=== PATIENT | female | born 1955 | race Caucasian/White ===

== ENCOUNTER → 2022-04-23 | Outpatient (CLI) | payer MEDICARE, BC, OTHER | LOC: M WHC 13:26 | PROVIDERS: ATTEND Internal Medicine | DX: Z12.31 Encounter for screening mammogram for malignant neoplasm of breast (principal) ==

== ENCOUNTER → 2023-05-22 | Outpatient (CLI) | payer MEDICARE, BC, OTHER | LOC: M WHC 12:29 | PROVIDERS: ATTEND Internal Medicine | DX: Z12.31 Encounter for screening mammogram for malignant neoplasm of breast (principal) ==

== ENCOUNTER → 2024-05-31 | Outpatient (CLI) | payer MEDICARE, BC | LOC: M WHC 07:59 | PROVIDERS: ATTEND Internal Medicine | DX: Z12.31 Encounter for screening mammogram for malignant neoplasm of breast (principal) ==

== ENCOUNTER 2024-11-04 08:52 | Day surgery (SDC) | payer MEDICARE, BC ==
[~2024-11-04] VITALS: Ht 162.6 cm; Wt 68.5 kg
[~2024-11-04 08:52] MED LIST: K2 P1TAB PO; THERTAB52 PO
[2024-11-04] MEDS ORDERED: LIDOCAINE 2% 100MG/5ML SDV (FOR ANES.) As Ordered ONE (10:32)
[2024-11-04] MEDS ORDERED: propofoL 200 MG/20 ML VIAL As Ordered ONE (10:32)
[2024-11-04] MEDS ORDERED: GLUCAGON INJ 1MG VIAL As Ordered ONE (10:54)
[2024-11-04 11:19] VITALS: TEMP 97.7
[2024-11-04 11:34] VITALS: BP 138/81; O2SAT 98
== END 2024-11-04 11:38 | disposition home or self-care (01) ==
LOC: M OPP 08:52
PROVIDERS: ATTEND Surgery
DX: K57.30 Diverticulosis of large intestine without perforation or abscess without bleeding (principal); Z86.0100 Personal history of colon polyps, unspecified; Z80.0 Family history of malignant neoplasm of digestive organs; Z79.899 Other long term (current) drug therapy
CPT/HCPCS: 45380; 88305; J1610

== ENCOUNTER → 2024-12-26 | Outpatient (REF) | payer MEDICARE, BC ==
[~2024-12-26] MED LIST changes: +AMLO2.5T3 PO; +SERT50TA29 PO
[2024-12-26 17:57] LABS: ALT/SGPT 38 U/L (7.0-40); AST/SGOT 38 U/L (<34); CALCIUM LEVEL 9.4 MG/DL (8.3-10.6); CARBON DIOXIDE LEVEL 23 MMOL/L (20-31); CHLORIDE LEVEL 109 MMOL/L (98-107); CHOLESTEROL LEVEL 206 MG/DL (<200); CHOLESTEROL RISK RATIO 3.28 (<5); CREATININE FOR GFR 0.61 MG/DL (0.55-1.30); GLOMERULAR FILTRATION RATE > 90.0 (>39); LDL CHOLESTEROL 128.1 MG/DL (<100); NON-HDL-C 143.3 MG/DL; POTASSIUM SERUM 4.1 MMOL/L (3.5-5.1); SODIUM LEVEL 145 MMOL/L (136-145); TRIGLYCERIDES LEVEL 76 MG/DL (<150)
[2024-12-26 18:06] LABS: PLATELET COUNT, AUTOMATED 300 10^3/uL (150-450)
== END ==
LOC: M SFHCCLAY 09:23
PROVIDERS: ATTEND Family Medicine
DX: D37.3 Neoplasm of uncertain behavior of appendix (principal); Z01.818 Encounter for other preprocedural examination; K76.0 Fatty (change of) liver, not elsewhere classified; Z13.220 Encounter for screening for lipoid disorders

== ENCOUNTER 2025-01-05 12:45 | Inpatient (IN) | payer MEDICARE, BC ==
[~2025-01-05] VITALS: Ht 162.6 cm; Wt 67.6 kg
[2025-01-17] VITALS (8 sets, daily range): BP systolic 111–134; BP diastolic 58–81; TEMP 97.6–98.5; O2SAT 95–98
[2025-01-17] MEDS: LR 1,000 ML IV SCH ×3 (00:30→11:40)
[2025-01-17] MEDS ORDERED: KETOROLAC 30 MG/ML 1 ML VIAL As Ordered ONE (06:24)
[2025-01-17] MEDS ORDERED: LIDOCAINE 2% 100 MG/5 ML SDV (FOR ANES.) As Ordered ONE (06:24)
[2025-01-17] MEDS ORDERED: SUGAMMADEX SODIUM 500 MG/5 ML VIAL As Ordered ONE (06:24)
[2025-01-17] MEDS ORDERED: ONDANSETRON 4MG 2ML VIAL As Ordered ONE (06:24)
[2025-01-17] MEDS ORDERED: dexAMETHasone 4 MG/ML 1 ML VIAL As Ordered ONE (06:24)
[2025-01-17] MEDS ORDERED: ROCURONIUM BROMIDE 50MG/5ML VIAL As Ordered ONE (06:24)
[2025-01-17] MEDS ORDERED: GLYCOPYRROLATE INJ 0.2 MG/ML 2 ML VIAL As Ordered ONE (06:24)
[2025-01-17] MEDS ORDERED: ACETAMINOPHEN 1000MG/100ML IV BAG As Ordered ONE (06:25)
[2025-01-17] MEDS ORDERED: MIDAZOLAM INJ 2 MG/2 ML VIAL As Ordered ONE (06:29)
[2025-01-17] MEDS: CelecoXIB 400 MG CAP PO ONE (07:15)
[2025-01-17] MEDS: ALVIMOPAN 12 MG CAPSULE PO ONE (07:15)
[2025-01-17] MEDS: SCOPOLAMINE 1MG TRANSDERMAL PATCH TOP ONE (07:31)
[2025-01-17] MEDS: ONDANSETRON 4MG 2ML VIAL IV ONE (07:32)
[2025-01-17] MEDS: HEPARIN SOD 5000 UNITS/ML 1 ML VIAL/SYRINGE SQ ONE (07:44)
[2025-01-17] MEDS ORDERED: PHENYLephrine 500MCG 5ML (100MCG/ML) SYRINGE As Ordered ONE (07:50)
[2025-01-17] MEDS: ceFAZolin SOD 2 GM IV ONCE IV ONE (07:50)
[2025-01-17] MEDS: metroNIDAZOLE 500 MG in IV 1 EA IV ONE (08:00)
[2025-01-17] MEDS ORDERED: ESMOLOL 100 MG/10 ML VIAL As Ordered ONE (08:16)
[2025-01-17] MEDS ORDERED: HYDROmorphone HCL 2 MG/ML 1 ML VIAL As Ordered ONE (08:22)
[2025-01-17] MEDS ORDERED: LABETALOL 100 MG/20 ML VIAL As Ordered ONE (09:07)
[2025-01-17] MEDS: INDOCYANINE GREEN 25 MG VIAL As Ordered ONE (09:26)
[2025-01-17] MEDS ORDERED: HYDROMORPHONE HCL 0.5 MG/0.5 ML SYRINGE IV PRN (11:15)
[2025-01-17] MEDS ORDERED: ONDANSETRON 4MG 2ML VIAL IV PRN ×2 (11:15→11:40)
[2025-01-17] MEDS: LIDOCAINE 1% SDV 30 ML VIAL As Ordered ONE (11:24)
[2025-01-17] MEDS ORDERED: ACETAMINOPHEN 325 MG TAB PO PRN (11:40)
[2025-01-17] MEDS ORDERED: PERCOCET 5MG/325MG TAB PO PRN ×2 (11:40)
[2025-01-17] MEDS ORDERED: MORPHINE 4 MG/ML 1 ML VIAL IV PRN (11:40)
[2025-01-17] MEDS: KETOROLAC 30 MG/ML 1 ML VIAL IV SCH (16:37)
[2025-01-18 04:06] VITALS: BP 127/64; TEMP 98; O2SAT 94
[2025-01-18 06:45] LABS: BASO # 0.0 10^3/uL (0.0-0.2); BASO % 0.2 % (0.0-1.0); EOS # 0.0 10^3/uL (0.0-0.5); EOS % 0.2 % (0.0-3.0); LYMPH # 1.9 10^3/uL (1.5-5.0); LYMPH % 15.4 % (24.0-44.0); MONO # 1.1 10^3/uL (0.0-0.8); MONO % 9.1 % (2.0-8.0); NEUTROPHILS # 9.3 10^3/uL (1.5-8.5); NEUTROPHILS % 74.5 % (36.0-66.0); PLATELET COUNT, AUTOMATED 244 10^3/uL (150-450)
[2025-01-18 07:03] LABS: CALCIUM LEVEL 8.7 MG/DL (8.3-10.6); CARBON DIOXIDE LEVEL 25 MMOL/L (20-31); CHLORIDE LEVEL 105 MMOL/L (98-107); CREATININE FOR GFR 0.71 MG/DL (0.55-1.30); GLOMERULAR FILTRATION RATE > 90.0 (>39); POTASSIUM SERUM 4.1 MMOL/L (3.5-5.1); SODIUM LEVEL 142 MMOL/L (136-145)
[2025-01-18 08:45] VITALS: BP 133/63; TEMP 99.1; O2SAT 96
[2025-01-18] MEDS: ENOXAPARIN 40 MG/0.4 ML SYRINGE (J1650 PER 10MG) SC SCH (08:46)
[2025-01-18] MEDS: ALVIMOPAN 12 MG CAPSULE PO SCH (11:20)
[2025-01-18 11:57] VITALS: BP 140/65; TEMP 97.8; O2SAT 99
[2025-01-18 16:30] VITALS: BP 151/79; TEMP 98.9; O2SAT 98
[2025-01-18] MEDS ORDERED: HOME MED LIST COMPLETE! XX SCH (19:15)
[2025-01-18 20:13] VITALS: BP 153/80; TEMP 98.1; O2SAT 99
[2025-01-19 04:51] VITALS: TEMP 96.9; O2SAT 99
[2025-01-19 05:38] VITALS: BP 158/84
[2025-01-19 07:15] LABS: BASO # 0.1 10^3/uL (0.0-0.2); BASO % 0.7 % (0.0-1.0); EOS # 0.2 10^3/uL (0.0-0.5); EOS % 2.0 % (0.0-3.0); LYMPH # 1.5 10^3/uL (1.5-5.0); LYMPH % 18.4 % (24.0-44.0); MONO # 1.0 10^3/uL (0.0-0.8); MONO % 12.2 % (2.0-8.0); NEUTROPHILS # 5.4 10^3/uL (1.5-8.5); NEUTROPHILS % 66.2 % (36.0-66.0); PLATELET COUNT, AUTOMATED 229 10^3/uL (150-450)
[2025-01-19 07:35] LABS: C REACTIVE PROTEIN QUANTITATIV 2.57 MG/DL (<1.0); CALCIUM LEVEL 8.7 MG/DL (8.3-10.6); CARBON DIOXIDE LEVEL 26 MMOL/L (20-31); CHLORIDE LEVEL 107 MMOL/L (98-107); CREATININE FOR GFR 0.60 MG/DL (0.55-1.30); GLOMERULAR FILTRATION RATE > 90.0 (>39); POTASSIUM SERUM 3.8 MMOL/L (3.5-5.1); SODIUM LEVEL 144 MMOL/L (136-145)
[2025-01-19 12:00] VITALS: BP 155/83; TEMP 97.9; O2SAT 98
== END 2025-01-19 16:18 | disposition home or self-care (01) | DRG 331 ==
LOC: M OR 01-17 06:05 → M MS4PR 01-17 12:20
PROVIDERS: ADMIT Surgery; ATTEND Surgery
PROC: 8E0W4CZ Robotic Assisted Procedure of Trunk Region, Percutaneous Endoscopic Approach (ICD-10-PCS; 2025-01-17)
PROC: 0DTF4ZZ Resection of Right Large Intestine, Percutaneous Endoscopic Approach (ICD-10-PCS; principal; 2025-01-17 07:30)
DX: K38.8 Other specified diseases of appendix (principal); I10 Essential (primary) hypertension; Z80.3 Family history of malignant neoplasm of breast; Z80.0 Family history of malignant neoplasm of digestive organs

== ENCOUNTER → 2025-04-24 | Outpatient (CLI) | payer MEDICARE, BC | LOC: M EKG 14:36 | PROVIDERS: ATTEND Nurse Practitioner Family | DX: I45.10 Unspecified right bundle-branch block (principal) ==

== ENCOUNTER → 2025-06-20 | Outpatient (CLI) | payer MEDICARE, BC | LOC: M WHC 09:52 | PROVIDERS: ATTEND Physician Assistant Medical | DX: Z12.31 Encounter for screening mammogram for malignant neoplasm of breast (principal); M81.0 Age-related osteoporosis without current pathological fracture ==